=== PATIENT | female | born 1990 | race American Indian/Alaskan Native ===

== ENCOUNTER 2021-08-16 12:11 | Outpatient (CLI) | payer MEDICAID ==
[2021-08-16 13:07] VITALS: BP 120/69
[2021-08-16] MEDS ORDERED: LACTATED RINGERS 500 ML IV ONE (13:10)
[2021-08-16 14:08] LABS: Bacteria,Urine 1+ /HPF (Negative); Bilirubin,Urine NEG (Negative); Blood,Urine NEG (Negative); Color,Urine Yellow (Yellow); Mucus,Urine 3+ /HPF; Urobilinogen,Urine < 2.0 mg/dL (<2.0)
== END 2021-08-16 14:55 | disposition home or self-care (01) ==
LOC: TRG 12:11 → APU 12:13 → TRG 14:55
PROVIDERS: ATTEND Student in an Organized Health Care Education/Training Program
DX: O60.03 Preterm labor without delivery, third trimester (principal); Z3A.28 28 weeks gestation of pregnancy
CPT/HCPCS: 36415; 59025; 81001; 84112; 87086

== ENCOUNTER 2021-10-12 20:36 | Inpatient (IN) | payer MEDICAID ==
[2021-10-12] MEDS ORDERED: LACTATED RINGERS 1,000 ML ONE (21:03)
[2021-10-12] MEDS ORDERED: ePHEDrine SULFATE 50 MG/1 ML INJ IV PRN (22:28)
[2021-10-12] MEDS ORDERED: TERBUTALINE 1 MG/1 ML INJ SUB-Q PRN (22:28)
[2021-10-12] MEDS ORDERED: LIDOCAINE (2%) 20 MG/1 ML VIAL 20 ML MDV INFILTRATI ONE (22:28)
[2021-10-12] MEDS ORDERED: ONDANSETRON 4 MG/2 ML INJ IV PRN (22:28)
[2021-10-12] MEDS ORDERED: NalbUPHINE 10 MG/1 ML INJ IV PRN (22:28)
[2021-10-12] MEDS ORDERED: MINERAL OIL 30 ML ORAL LIQD PO PRN (22:28)
[2021-10-12] MEDS ORDERED: ACETAMINOPHEN 325 MG TAB PO PRN (22:28)
[2021-10-12] MEDS ORDERED: PROMETHAZINE 25 MG TAB PO PRN (22:28)
[2021-10-12] MEDS ORDERED: DINOPROSTONE 10 MG VAG SUPP VG ONE (22:28)
[2021-10-12] MEDS ORDERED: OXYTOCIN DRIP 30 UNITS/500 ML BAG IV SCH (23:00)
[2021-10-12 23:24] LABS: Hematocrit 30.6 % (30.3-42.9); Hemoglobin 9.7 gm/dl (10.1-14.3); Mean Corpuscular HGB Conc 32 % (30-34); Mean Corpuscular Volume 86 fl (79-97); Platelet Count 269 K/mm3 (140-440); Red Blood Count 3.57 M/mm3 (3.65-5.03)
--- NOTE | 2021-10-13 07:52 | History and Physical Report ---
History of Present Illness Date of examination: 10/13/21 Date of admission: 10/12/21 20:36 Chief complaint: I'm here to be induced because I was told my baby can . History of present illness: Pt is a @ 37 wks, who presented to labor and delivery for an IOL d/t IUGR and abnormal dopplers. She was being followed by [facility] d/t IUGR and hx of gastric sleeve procedure. EDC Confirmation: 11/03/2021 Gestational Age: 37 weeks Past History : 1 Term Births: 0 Premature Births: 0 Living Children: 0 Para: 0 Mult. Births: 0 Prev : 0 Prev. attempt? 0 Aborta: 0 Elect. Ab: 0 Spont. Ab: 0 Ectopics: 0 Past Medical History: Reviewed and updated today: Depression - takes Zoloft PCOS - diagnosed 2015 Past Surgical History: Reviewed and updated today: Gastric sleeve - 08/2017 Family History Summary: [facility] - Has Family History Breast Cancer - Entered On: 04/12/2021 Social History: Patient is single Smoking History: Patient has never smoked. Risk Factors: Smoked Tobacco Use: Never smoker Smokeless Tobacco Use: Never Counseled to Quit/Cut Down: yes Passive Smoke Exposure: no HIV High Risk Behavior: no Caffeine Use: <1 drinks per day Exercise: no Seatbelt Use: preg-disability counselor % No Dietary Counseling Reason: pn yes Alcohol Use: yes AUDIT-C How often do you have a drink containing alcohol? Monthly or less Total AUDIT-C Score: 1 Drug Use: no Past Medical History Surgery (Non-obstetrician and gynaecologist): Gastric sleeve - 08/2017 Abnormal PAP: negative JIGNA Exposure: negative Infertility: negative Uterine Anomaly: negative Uterine Surgery (not C/S): negative Other Gynecologic Problems: negative Social Hx: Patient is single Smoking History: Patient has never smoked. Infection History Hx of STD: chlamydia HIV Risk Eval: no Hepatitis B Risk Eval: low risk Personal hx. of genital herpes: no Rash, Viral, or Febrile illness since last LMP? no Varicella/Chicken Pox Status: Previous Disease TB Risk: no Genetic History Congenital Heart Defect: Mom: no Dad: no Jose Disease: Mom: no Dad: no Thalassemia Mom: no Dad: no Neural Tube Defect Mom: no Dad: no Down's Syndrome Mom: no Dad: no Francisco-Sachs Mom: no Dad: no Sickle Cell Disease/Trait Mom: no Dad: no Hemophilia Mom: no Dad: no Muscular Dystrophy Mom: no Dad: no Cystic Fibrosis Mom: no Dad: no Slade Chorea Mom: no Dad: no Mental Retardation Mom: no Dad: no Fragile X Mom: no Dad: no Other Genetic/Chromosomal Disorder Mom: no Dad: no Child w/other defect Mom: no Dad: no Enviromental Exposures Enviromental Exposures Reviewed Xray Exposure: no Medication, drug, or alcohol use since LMP: no Chemical/Other Exposure: no Exposure to Cat Liter: no Hx of Parvovirus (Fifth Disease): no Occupational Exposure to Children: none Comments: Works from home Current Allergies (reviewed today): No known allergies Past History Past Medical History: other (Depression) Past Surgical History: other (Gastric sleeve) 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) Family/Genetic History: cancer Social history: no significant social history - Obstetrical History Expected Date of Delivery: 11/03/21 Actual Gestation: 37 Week(s) 0 Day(s) : 1 Para: 0 Hx # Term Pregnancies: 0 Number of Pregnancies: 0 Spontaneous Abortions: 0 Induced : 0 Number of Living Children: 0 Medications and Allergies Allergies Allergy/AdvReac Type Severity Reaction Status Date / Time No Known Allergies Allergy Unverified 08/16/21 13:15 Active Meds: Active Medications Acetaminophen (Acetaminophen 325 Mg Tab) 650 mg PO Q4H PRN PRN Reason: Pain, Mild (1-3) Ephedrine Sulfate (Ephedrine Sulfate 50 Mg/1 Ml Inj) 10 mg IV Q2M PRN PRN Reason: Hypotension Lactated Ringer's (Lactated Ringers) 1,000 mls @ 125 mls/hr IV DIRECT MICHAELLE Oxytocin/Sodium Chloride (Pitocin/Ns 30 Unit/500ml) 30 units in 500 mls @ 40 mls/hr IV TITR MICHAELLE; Protocol Mineral Oil (Mineral Oil 30 Ml Oral Liqd) 30 ml PO QHS PRN PRN Reason: Constipation Nalbuphine HCl (Nalbuphine 10 Mg/1 Ml Inj) 10 mg IV Q2H PRN PRN Reason: Pain, Moderate (4-6) Ondansetron HCl (Ondansetron 4 Mg/2 Ml Inj) 4 mg IV Q8H PRN PRN Reason: Nausea And Vomiting Promethazine HCl (Promethazine 25 Mg Tab) 25 mg PO Q6H PRN PRN Reason: Nausea And Vomiting Terbutaline Sulfate (Terbutaline 1 Mg/1 Ml Inj) 0.25 mg SUB-Q ONCE PRN PRN Reason: Hyperstimulation/Hypertonicity Review of Systems All systems: negative - Vital Signs Vital signs: Vital Signs Pulse Pulse Ox 100 H 100 10/12/21 21:48 10/12/21 21:48 Temp Pulse Resp BP Pulse Ox 98.7 F 82 15 121/76 98 10/13/21 04:24 10/13/21 07:15 10/13/21 04:24 10/13/21 04:09 10/13/21 07:15 - Physical Exam Breasts: Positive: deferred Cardiovascular: Regular rate Lungs: Positive: Normal air movement Abdomen: Positive: normal appearance, soft Genitourinary (Female): Positive: normal external genitalia, normal perenium Vulva: both: normal Uterus: Positive: enlarged (Normal for @ 37 weeks gestation) Extremities: Positive: normal - Obstetrical FHR: category 1 Uterine Contraction Monitor Mode: Internal Cervical Dilatation: 0 (Per water and sewer systems superintendent RN) Cervical Effacement Percentage: 20 station: -4 Uterine Contraction Pattern: Irregular Uterine Tone Measurement Phase: Resting Uterine Contraction Intensity: Mild Results Result Diagrams: 10/12/21 Unknown Abnormal lab results 10/12/21 Range/Units Unknown RBC 3.57 L (3.65-5.03) M/mm3 Hgb 9.7 L (10.1-14.3) gm/dl MCH 27 L (28-32) pg All other labs normal. GBS NEGATIVE HBsAg Screen Negative Negative *1 RPR Non Reactive Non Reactive *2 Rubella Antibodies, IgG 4.06 index Immune >0.99 *3 Non-immune <0.90 Equivocal 0.90 - 0.99 Immune >0.99 ABO Grouping A *4 Rh Factor Positive *5 Please note: Prior records for this patient's ABO / Rh type are not available for additional verification. Antibody Screen Negative Negative *6 Tests: (2) HB Solu + Rflx [facility] ([id number]) Hemoglobin (Hgb) Solubility Negative Negative *31 Tests: (3) HIV Ag/Ab with Reflex ([id number]) HIV Screen 4th Generation wRfx Non Reactive Non Reactive *32 Tests: (4) HCV Antibody reflex to AMOL ([id number]) HCV Ab <0.1 s/co ratio 0.0-0.9 *33 Tests: (5) Interpretation: ([id number]) ! Interpretation: SPRCS *34 Negative Not infected with HCV, unless recent infection is suspected or other evidence exists to indicate HCV infection. Assessment and Plan A: 31 y.o. @ 37 wks, IOL d/t IUGR and abnormal Doppler studies at [facility] visit. - Patient Problems (1) IUGR (intrauterine growth restriction) affecting care of mother Current Visit: Yes Status: Acute Qualifiers: Trimester: third trimester Plan to address problem: Monitor status through EFM. Continuous EFM. (2) 37 or more weeks gestation of Current Visit: Yes Status: Acute Plan to address problem: Admit to labor and delivery for IOL. Initiate IV. Draw admission labs. IOL started with Cervidil. Due to be taken out at noon. Pain management: IV pain medication and epidural when need.
--- NOTE | 2021-10-13 12:18 | Event Note ---
Date: 10/13/21 (Cervidil removed. ) Cervical exam 0.5/50/-4. Cervidil removed. Will allow patient to eat lunch, then continue IOL with Pitocin. Per u/s: vertex presentation.
--- NOTE | 2021-10-13 12:25 | Ultrasound Report ---
ULTRASOUND OBSTETRIC LIMITED INDICATION / CLINICAL INFORMATION: presentation. TECHNIQUE: Transabdominal. COMPARISON: None available. FINDINGS: HEART RATE (beats per minute): 156 PRESENTATION: Cephalic. ADDITIONAL FINDINGS: None. IMPRESSION: 1. Cephalic presentation with heart rate of 156 bpm. Signer Name: Galo Simms MD Signed: 10/13/2021 12:20 PM Workstation Name: [id number]
[2021-10-13] MEDS ORDERED: OXYTOCIN DRIP 30 UNITS/500 ML BAG IV SCH (15:00)
[2021-10-13] MEDS: LACTATED RINGERS 1,000 ML IV SCH (19:50)
--- NOTE | 2021-10-13 20:34 | Event Note ---
Date: 10/13/21 Category 1 monitor tracing with irregular contractions at times. Will continue with IOL. Pitocin stopped for now. Will allow patient to eat dinner. Cervical exam 1.5//-3. Will insert Cervidil after patient eats dinner. Plan of care for the night discussed with patient. She verbalized understanding and agrees to plan.
[2021-10-13] MEDS ORDERED: BUTORPHANOL 2 MG/1 ML INJ IV PRN (20:37)
[2021-10-13] MEDS ORDERED: DINOPROSTONE 10 MG VAG SUPP VG ONE (21:32)
[2021-10-14] MEDS: LACTATED RINGERS 1,000 ML IV SCH ×4 (01:46→09:07)
[2021-10-14] MEDS: fentaNYL 100 MCG/2 ML INJ IV PRN ×2 (03:10→05:57)
--- NOTE | 2021-10-14 03:20 | Progress Note ---
Assessment and Plan A: 31 y.o. @ 37.1 wks, IOL d/t IUGR with abnormal Dopplers. - Patient Problems (1) IUGR (intrauterine growth restriction) affecting care of mother Current Visit: Yes Status: Acute Qualifiers: Trimester: third trimester Plan to address problem: Pt with too many contractions and c/o a lot of pain. Cervical exam /-2. Cervidil removed at this time. Will initiate Pitocin per protocol. (2) 37 or more weeks gestation of Current Visit: Yes Status: Acute Subjective - Subjective Date of service: 10/14/21 Principal diagnosis: IUP @ 37.1 wks, IOL d/t IUGR and abnormal dopplers Patient reports: movement normal, contractions Objective - Vital Signs Vital Signs: Vital Signs - 12hr 10/13/21 10/13/21 10/13/21 14:43 14:48 14:53 Temperature Pulse Rate 50 L 79 84 Respiratory Rate Blood Pressure O2 Sat by Pulse 85 99 99 Oximetry O2 Sat by Pulse Oximetry [ Bilateral Throughout] 10/13/21 10/13/21 10/13/21 14:58 15:03 15:08 Temperature Pulse Rate 78 83 80 Respiratory Rate Blood Pressure O2 Sat by Pulse 99 99 98 Oximetry O2 Sat by Pulse Oximetry [ Bilateral Throughout] 10/13/21 10/13/21 10/13/21 15:13 15:18 15:23 Temperature Pulse Rate 81 78 92 H Respiratory Rate Blood Pressure O2 Sat by Pulse 98 98 100 Oximetry O2 Sat by Pulse Oximetry [ Bilateral Throughout] 10/13/21 10/13/21 10/13/21 15:24 15:28 15:29 Temperature 98.4 F Pulse Rate 83 79 Respiratory Rate Blood Pressure 116/62 O2 Sat by Pulse 97 Oximetry O2 Sat by Pulse Oximetry [ Bilateral Throughout] 10/13/21 10/13/21 10/13/21 15:33 15:38 15:43 Temperature Pulse Rate 76 76 79 Respiratory Rate Blood Pressure O2 Sat by Pulse 98 99 98 Oximetry O2 Sat by Pulse Oximetry [ Bilateral Throughout] 10/13/21 10/13/21 10/13/21 15:48 15:53 15:58 Temperature Pulse Rate 91 H 74 76 Respiratory Rate Blood Pressure 119/70 O2 Sat by Pulse 100 98 98 Oximetry O2 Sat by Pulse Oximetry [ Bilateral Throughout] 03/07/2510/13/21 10/13/21 16:10 16:15 16:20 Temperature Pulse Rate 75 68 64 Respiratory Rate Blood Pressure O2 Sat by Pulse 94 100 99 Oximetry O2 Sat by Pulse Oximetry [ Bilateral Throughout] 10/13/21 10/13/21 10/13/21 16:25 16:30 16:35 Temperature Pulse Rate 63 76 64 Respiratory Rate Blood Pressure O2 Sat by Pulse 97 99 99 Oximetry O2 Sat by Pulse Oximetry [ Bilateral Throughout] 10/13/21 10/13/21 10/13/21 16:40 16:45 16:50 Temperature Pulse Rate 65 68 67 Respiratory Rate Blood Pressure O2 Sat by Pulse 100 100 100 Oximetry O2 Sat by Pulse Oximetry [ Bilateral Throughout] 10/13/21 10/13/21 10/13/21 16:55 17:00 17:07 Temperature Pulse Rate 67 74 91 H Respiratory Rate Blood Pressure O2 Sat by Pulse 100 99 99 Oximetry O2 Sat by Pulse Oximetry [ Bilateral Throughout] 10/13/21 10/13/21 10/13/21 17:12 17:17 17:22 Temperature Pulse Rate 84 84 71 Respiratory Rate Blood Pressure O2 Sat by Pulse 100 100 100 Oximetry O2 Sat by Pulse Oximetry [ Bilateral Throughout] 10/13/21 10/13/21 10/13/21 17:27 17:29 17:32 Temperature Pulse Rate 69 68 70 Respiratory Rate Blood Pressure O2 Sat by Pulse 100 90 100 Oximetry O2 Sat by Pulse Oximetry [ Bilateral Throughout] 10/13/21 10/13/21 10/13/21 17:37 17:42 17:47 Temperature Pulse Rate 66 78 80 Respiratory Rate Blood Pressure O2 Sat by Pulse 100 100 99 Oximetry O2 Sat by Pulse Oximetry [ Bilateral Throughout] 10/13/21 10/13/21 10/13/21 17:52 17:57 18:01 Temperature 99 F Pulse Rate 75 78 Respiratory Rate Blood Pressure O2 Sat by Pulse 99 100 Oximetry O2 Sat by Pulse Oximetry [ Bilateral Throughout] 10/13/21 10/13/21 10/13/21 18:02 18:07 18:12 Temperature Pulse Rate 76 75 70 Respiratory Rate Blood Pressure O2 Sat by Pulse 100 100 100 Oximetry O2 Sat by Pulse Oximetry [ Bilateral Throughout] 10/13/21 10/13/21 10/13/21 18:17 18:22 18:27 Temperature Pulse Rate 71 77 67 Respiratory Rate Blood Pressure O2 Sat by Pulse 99 100 100 Oximetry O2 Sat by Pulse Oximetry [ Bilateral Throughout] 10/13/21 10/13/21 10/13/21 18:32 18:37 18:42 Temperature Pulse Rate 72 68 69 Respiratory Rate Blood Pressure O2 Sat by Pulse 100 100 100 Oximetry O2 Sat by Pulse Oximetry [ Bilateral Throughout] 10/13/21 10/13/21 10/13/21 18:47 18:52 18:57 Temperature Pulse Rate 74 70 55 L Respiratory Rate Blood Pressure O2 Sat by Pulse 99 100 85 Oximetry O2 Sat by Pulse Oximetry [ Bilateral Throughout] 10/13/21 10/13/21 10/13/21 19:00 19:05 19:10 Temperature Pulse Rate 85 76 84 Respiratory Rate Blood Pressure O2 Sat by Pulse 98 100 100 Oximetry O2 Sat by Pulse Oximetry [ Bilateral Throughout] 10/13/21 10/13/21 10/13/21 19:15 19:20 19:25 Temperature Pulse Rate 75 79 75 Respiratory Rate Blood Pressure O2 Sat by Pulse 100 100 100 Oximetry O2 Sat by Pulse Oximetry [ Bilateral Throughout] 10/13/21 10/13/21 10/13/21 19:30 19:35 19:38 Temperature Pulse Rate 71 73 72 Respiratory Rate Blood Pressure 121/68 O2 Sat by Pulse 99 100 Oximetry O2 Sat by Pulse Oximetry [ Bilateral Throughout] 10/13/21 10/13/21 10/13/21 19:40 19:45 19:46 Temperature 99.0 F Pulse Rate 72 72 Respiratory Rate Blood Pressure O2 Sat by Pulse 100 100 Oximetry O2 Sat by Pulse Oximetry [ Bilateral Throughout] 10/13/21 10/13/21 10/13/21 19:47 19:50 19:55 Temperature Pulse Rate 84 83 Respiratory Rate Blood Pressure O2 Sat by Pulse 100 100 Oximetry O2 Sat by Pulse 100 Oximetry [ Bilateral Throughout] 10/13/21 10/13/21 10/13/21 20:02 20:07 20:12 Temperature Pulse Rate 80 91 H 86 Respiratory Rate Blood Pressure O2 Sat by Pulse 96 100 100 Oximetry O2 Sat by Pulse Oximetry [ Bilateral Throughout] 10/13/21 10/13/21 10/13/21 20:17 20:22 20:27 Temperature Pulse Rate 77 76 83 Respiratory Rate Blood Pressure O2 Sat by Pulse 100 100 99 Oximetry O2 Sat by Pulse Oximetry [ Bilateral Throughout] 10/13/21 10/13/21 10/13/21 20:32 20:49 20:52 Temperature Pulse Rate 78 Respiratory 18 Rate Blood Pressure O2 Sat by Pulse 100 83 L Oximetry O2 Sat by Pulse Oximetry [ Bilateral Throughout] 10/13/21 10/13/21 10/13/21 20:53 21:06 21:27 Temperature Pulse Rate 80 76 82 Respiratory Rate Blood Pressure 127/80 O2 Sat by Pulse 100 98 Oximetry O2 Sat by Pulse Oximetry [ Bilateral Throughout] 10/13/21 10/13/21 10/13/21 21:36 21:41 21:46 Temperature Pulse Rate 95 H 82 108 H Respiratory Rate Blood Pressure O2 Sat by Pulse 99 98 99 Oximetry O2 Sat by Pulse Oximetry [ Bilateral Throughout] 10/13/21 10/13/21 10/13/21 21:49 21:51 21:52 Temperature Pulse Rate 95 H 78 Respiratory 18 Rate Blood Pressure 133/78 O2 Sat by Pulse 99 Oximetry O2 Sat by Pulse Oximetry [ Bilateral Throughout] 10/13/21 10/13/21 10/13/21 21:56 22:01 22:06 Temperature Pulse Rate 93 H 85 74 Respiratory Rate Blood Pressure O2 Sat by Pulse 99 98 99 Oximetry O2 Sat by Pulse Oximetry [ Bilateral Throughout] 10/13/21 10/13/21 10/13/21 22:11 22:16 22:21 Temperature Pulse Rate 76 75 68 Respiratory Rate Blood Pressure O2 Sat by Pulse 98 99 99 Oximetry O2 Sat by Pulse Oximetry [ Bilateral Throughout] 10/13/21 10/13/21 10/13/21 22:26 22:31 22:36 Temperature Pulse Rate 71 67 63 Respiratory Rate Blood Pressure O2 Sat by Pulse 99 99 100 Oximetry O2 Sat by Pulse Oximetry [ Bilateral Throughout] 10/13/21 10/14/21 10/14/21 23:51 00:51 00:55 Temperature Pulse Rate 74 79 75 Respiratory Rate Blood Pressure 137/81 161/92 132/81 O2 Sat by Pulse Oximetry O2 Sat by Pulse Oximetry [ Bilateral Throughout] 10/14/21 10/14/21 10/14/21 01:48 01:51 01:53 Temperature 98.4 F Pulse Rate 82 94 H Respiratory Rate Blood Pressure O2 Sat by Pulse 100 100 Oximetry O2 Sat by Pulse Oximetry [ Bilateral Throughout] 10/14/21 10/14/21 10/14/21 01:58 03:03 03:08 Temperature Pulse Rate 78 88 72 Respiratory Rate Blood Pressure O2 Sat by Pulse 100 100 100 Oximetry O2 Sat by Pulse Oximetry [ Bilateral Throughout] 10/14/21 10/14/21 10/14/21 03:10 03:13 03:18 Temperature Pulse Rate 77 82 Respiratory 20 Rate Blood Pressure O2 Sat by Pulse 98 97 Oximetry O2 Sat by Pulse Oximetry [ Bilateral Throughout] - Exam Cardiovascular: Regular rate Lungs: Normal air movement Vulva: both: normal FHR: category 1 Uterine Contraction Monitor Mode: External Cervical Dilatation: 2 Cervical Effacement Percentage: 50 station: -2 Uterine Contraction Pattern: Irregular Uterine Tone Measurement Phase: Resting Uterine Contraction Intensity: Moderate Extremities: normal - Labs Labs: Abnormal Labs 10/12/21 Unknown RBC 3.57 L Hgb 9.7 L MCH 27 L Laboratory Results - last 24 hr 10/13/21 09:45 SARS-CoV-2 (PCR) Negative
--- NOTE | 2021-10-14 04:48 | Event Note ---
Date: 10/14/21 Received a call from RN to let me know that the patient had just SROM for mec stained fluid. Upon assessment, a large amount of meconium stained fluid noted on bed. Cervical exam . Will start Pitocin per protocol. Category 1 monitor tracing noted.
[2021-10-14] MEDS ORDERED: NALOXONE 2 MG/2 ML INJ IV PRN (07:22)
[2021-10-14] MEDS ORDERED: ePHEDrine SULFATE 50 MG/1 ML INJ IV PRN (07:22)
--- NOTE | 2021-10-14 07:22 | Anesthesia Consultation ---
Anesthesia Consult and Med Hx Date of service: 10/14/21 - Airway Anesthetic Teeth Evaluation: Good ROM Head & Neck: Adequate Mental/Hyoid Distance: Adequate Mallampati Class: Class II Intubation Access Assessment: Probably Good - Pulmonary Exam CTA: Yes - Cardiac Exam Cardiac Exam: RRR - Pre-Operative Health Status ASA Pre-Surgery Classification: ASA2 Proposed Anesthetic Plan: Epidural - Pulmonary Hx Asthma: No COPD: No Hx Pneumonia: No - Cardiovascular System Hx Hypertension: No - Central Nervous System Hx Seizures: No Hx Psychiatric Problems: Yes - Endocrine Hx Renal Disease: No Hx End Stage Renal Disease: No Hx Hypothyroidism: No Hx Hyperthyroidism: No - Hematic Hx Anemia: No Hx Sickle Cell Disease: No - Other Systems Hx Alcohol Use: No
--- NOTE | 2021-10-14 07:48 | Progress Note ---
Labor Epidural - Labor Epidural Start Time: 07:32 Stop Time: 07:48 Performed by:: MARIA ALEJANDRA IBARRA Procedure: Patient is requesting epidural for labor pain. H&P, and labs reviewed. Procedure explained, questions answered, consent obtained. Patient in sitting position with blood pressure cuff and pulse ox on and working. Timeout performed immediately before start of procedure. Sterile Chloraprep prep/drape. 3 mL 1% lidocaine skin wheal at L[3]-L[4]. 17-gauge tuohy epidural needle advanced to [id number] with saline at 9 cm. 25-gauge spinal needle advanced until clear, free-flowing CSF. Epidural catheter advanced to 15 cm, negative aspiration for blood and csf, negative test dose 3 ml 1.5% lidocaine with epinephrine. Dexmedetomidine 30 mcg administered. Sterile sponge and tegaderm applied, followed by tape reinforcement. Patient tolerated procedure well. Jacquelin SRNA
[2021-10-14] MEDS ORDERED: fentaNYL-BUPIV 2 MCG/ML-0.125% 200 MCG/100 ML BAG EPIDURAL SCH (08:00)
--- NOTE | 2021-10-14 09:21 | Progress Note ---
Assessment and Plan A: 31 y.o. IOL d/t IUGR and abnormal Dopplers. - Patient Problems (1) IUGR (intrauterine growth restriction) affecting care of mother Current Visit: Yes Status: Acute Qualifiers: Trimester: third trimester Plan to address problem: Continue with IOL. Continue with Pitocin per protocol. Continue to monitor status through EFM. Anticipate . (2) 37 or more weeks gestation of Current Visit: Yes Status: Acute Subjective - Subjective Date of service: 10/14/21 Principal diagnosis: IUP @ 37.1 wks, IOL d/t IUGR and abnormal dopplers Interval history: Pt had epidural placed. Anesthesia called to come and reassess d/t patient feeling pain. Also some low blood pressures that were corrected after administration of ephedrine. Patient reports: movement normal, contractions Objective - Vital Signs Vital Signs: Vital Signs - 12hr 10/13/21 10/13/21 10/13/21 20:22 20:27 20:32 Temperature Pulse Rate 76 83 78 Respiratory Rate Blood Pressure O2 Sat by Pulse 100 99 100 Oximetry O2 Sat by Pulse Oximetry [ Bilateral Throughout] 10/13/21 10/13/21 10/13/21 20:49 20:52 20:53 Temperature Pulse Rate 80 Respiratory 18 Rate Blood Pressure 127/80 O2 Sat by Pulse 83 L Oximetry O2 Sat by Pulse Oximetry [ Bilateral Throughout] 10/13/21 10/13/21 10/13/21 21:06 21:27 21:36 Temperature Pulse Rate 76 82 95 H Respiratory Rate Blood Pressure O2 Sat by Pulse 100 98 99 Oximetry O2 Sat by Pulse Oximetry [ Bilateral Throughout] 10/13/21 10/13/21 10/13/21 21:41 21:46 21:49 Temperature Pulse Rate 82 108 H Respiratory 18 Rate Blood Pressure O2 Sat by Pulse 98 99 Oximetry O2 Sat by Pulse Oximetry [ Bilateral Throughout] 10/13/21 10/13/21 10/13/21 21:51 21:52 21:56 Temperature Pulse Rate 95 H 78 93 H Respiratory Rate Blood Pressure 133/78 O2 Sat by Pulse 99 99 Oximetry O2 Sat by Pulse Oximetry [ Bilateral Throughout] 10/13/21 10/13/21 10/13/21 22:01 22:06 22:11 Temperature Pulse Rate 85 74 76 Respiratory Rate Blood Pressure O2 Sat by Pulse 98 99 98 Oximetry O2 Sat by Pulse Oximetry [ Bilateral Throughout] 10/13/21 10/13/21 10/13/21 22:16 22:21 22:26 Temperature Pulse Rate 75 68 71 Respiratory Rate Blood Pressure O2 Sat by Pulse 99 99 99 Oximetry O2 Sat by Pulse Oximetry [ Bilateral Throughout] 10/13/21 10/13/21 10/13/21 22:31 22:36 23:51 Temperature Pulse Rate 67 63 74 Respiratory Rate Blood Pressure 137/81 O2 Sat by Pulse 99 100 Oximetry O2 Sat by Pulse Oximetry [ Bilateral Throughout] 10/14/21 10/14/21 10/14/21 00:51 00:55 01:48 Temperature Pulse Rate 79 75 82 Respiratory Rate Blood Pressure 161/92 132/81 O2 Sat by Pulse 100 Oximetry O2 Sat by Pulse Oximetry [ Bilateral Throughout] 10/14/21 10/14/21 10/14/21 01:51 01:53 01:58 Temperature 98.4 F Pulse Rate 94 H 78 Respiratory Rate Blood Pressure O2 Sat by Pulse 100 100 Oximetry O2 Sat by Pulse Oximetry [ Bilateral Throughout] 10/14/21 10/14/21 10/14/21 03:03 03:08 03:10 Temperature Pulse Rate 88 72 Respiratory 20 Rate Blood Pressure O2 Sat by Pulse 100 100 Oximetry O2 Sat by Pulse Oximetry [ Bilateral Throughout] 10/14/21 10/14/21 10/14/21 03:13 03:18 03:23 Temperature Pulse Rate 77 82 76 Respiratory Rate Blood Pressure O2 Sat by Pulse 98 97 99 Oximetry O2 Sat by Pulse Oximetry [ Bilateral Throughout] 10/14/21 10/14/21 10/14/21 03:28 03:33 03:38 Temperature Pulse Rate 75 77 79 Respiratory Rate Blood Pressure O2 Sat by Pulse 99 99 100 Oximetry O2 Sat by Pulse Oximetry [ Bilateral Throughout] 10/14/21 10/14/21 10/14/21 03:43 03:48 03:53 Temperature Pulse Rate 79 89 88 Respiratory Rate Blood Pressure O2 Sat by Pulse 100 100 100 Oximetry O2 Sat by Pulse Oximetry [ Bilateral Throughout] 10/14/21 10/14/21 10/14/21 03:58 04:03 04:08 Temperature Pulse Rate 82 83 76 Respiratory Rate Blood Pressure O2 Sat by Pulse 100 100 100 Oximetry O2 Sat by Pulse Oximetry [ Bilateral Throughout] 10/14/21 10/14/21 10/14/21 04:10 04:13 04:18 Temperature Pulse Rate 76 76 Respiratory 18 Rate Blood Pressure O2 Sat by Pulse 99 100 Oximetry O2 Sat by Pulse Oximetry [ Bilateral Throughout] 10/14/21 10/14/21 10/14/21 04:23 04:28 04:33 Temperature Pulse Rate 73 68 78 Respiratory Rate Blood Pressure O2 Sat by Pulse 100 100 100 Oximetry O2 Sat by Pulse Oximetry [ Bilateral Throughout] 10/14/21 10/14/21 10/14/21 04:38 04:52 04:53 Temperature Pulse Rate 94 H 82 86 Respiratory Rate Blood Pressure 121/69 O2 Sat by Pulse 100 100 Oximetry O2 Sat by Pulse Oximetry [ Bilateral Throughout] 10/14/21 10/14/21 10/14/21 04:55 04:57 05:02 Temperature 98.8 F Pulse Rate 73 94 H Respiratory Rate Blood Pressure O2 Sat by Pulse 100 100 Oximetry O2 Sat by Pulse Oximetry [ Bilateral Throughout] 10/14/21 10/14/21 10/14/21 05:07 05:12 05:17 Temperature Pulse Rate 71 72 78 Respiratory Rate Blood Pressure O2 Sat by Pulse 100 99 100 Oximetry O2 Sat by Pulse Oximetry [ Bilateral Throughout] 10/14/21 10/14/21 10/14/21 05:22 05:27 05:32 Temperature Pulse Rate 85 70 74 Respiratory Rate Blood Pressure O2 Sat by Pulse 100 100 99 Oximetry O2 Sat by Pulse Oximetry [ Bilateral Throughout] 10/14/21 10/14/21 10/14/21 05:37 05:42 05:47 Temperature Pulse Rate 82 69 76 Respiratory Rate Blood Pressure O2 Sat by Pulse 99 100 100 Oximetry O2 Sat by Pulse Oximetry [ Bilateral Throughout] 10/14/21 10/14/21 10/14/21 05:52 05:57 06:02 Temperature Pulse Rate 91 H 72 78 Respiratory 18 Rate Blood Pressure O2 Sat by Pulse 100 100 100 Oximetry O2 Sat by Pulse Oximetry [ Bilateral Throughout] 10/14/21 10/14/21 10/14/21 06:07 06:12 06:17 Temperature Pulse Rate 96 H 70 74 Respiratory Rate Blood Pressure O2 Sat by Pulse 100 100 96 Oximetry O2 Sat by Pulse Oximetry [ Bilateral Throughout] 10/14/21 10/14/21 10/14/21 06:22 06:24 06:27 Temperature Pulse Rate 82 69 67 Respiratory Rate Blood Pressure O2 Sat by Pulse 100 92 90 Oximetry O2 Sat by Pulse Oximetry [ Bilateral Throughout] 10/14/21 10/14/21 10/14/21 06:31 06:32 06:37 Temperature Pulse Rate 69 86 64 Respiratory Rate Blood Pressure O2 Sat by Pulse 91 100 98 Oximetry O2 Sat by Pulse Oximetry [ Bilateral Throughout] 10/14/21 10/14/21 10/14/21 06:38 06:42 06:45 Temperature Pulse Rate 65 84 73 Respiratory Rate Blood Pressure O2 Sat by Pulse 88 97 93 Oximetry O2 Sat by Pulse Oximetry [ Bilateral Throughout] 10/14/21 10/14/21 10/14/21 06:47 06:52 07:07 Temperature Pulse Rate 74 77 74 Respiratory Rate Blood Pressure 122/61 O2 Sat by Pulse 99 99 Oximetry O2 Sat by Pulse Oximetry [ Bilateral Throughout] 10/14/21 10/14/21 10/14/21 07:10 07:15 07:20 Temperature Pulse Rate 85 92 H 90 Respiratory Rate Blood Pressure O2 Sat by Pulse 100 98 100 Oximetry O2 Sat by Pulse Oximetry [ Bilateral Throughout] 10/14/21 10/14/21 10/14/21 07:25 07:30 07:35 Temperature 98.5 F Pulse Rate 102 H 101 H 81 Respiratory 20 Rate Blood Pressure O2 Sat by Pulse 100 100 99 Oximetry O2 Sat by Pulse 100 Oximetry [ Bilateral Throughout] 10/14/21 10/14/21 10/14/21 07:39 07:40 07:45 Temperature Pulse Rate 72 71 80 Respiratory Rate Blood Pressure 132/73 O2 Sat by Pulse 100 100 Oximetry O2 Sat by Pulse Oximetry [ Bilateral Throughout] 10/14/21 10/14/21 10/14/21 07:47 07:49 07:50 Temperature Pulse Rate 85 96 H 88 Respiratory Rate Blood Pressure 136/84 112/86 O2 Sat by Pulse 100 Oximetry O2 Sat by Pulse Oximetry [ Bilateral Throughout] 10/14/21 10/14/21 10/14/21 07:51 07:53 07:55 Temperature Pulse Rate 80 88 69 Respiratory Rate Blood Pressure 123/78 141/73 130/67 O2 Sat by Pulse 100 Oximetry O2 Sat by Pulse Oximetry [ Bilateral Throughout] 10/14/21 10/14/21 10/14/21 07:57 07:59 08:00 Temperature Pulse Rate 93 H 74 81 Respiratory Rate Blood Pressure 127/65 118/60 O2 Sat by Pulse 100 Oximetry O2 Sat by Pulse Oximetry [ Bilateral Throughout] 10/14/21 10/14/21 10/14/21 08:01 08:03 08:05 Temperature Pulse Rate 75 74 82 Respiratory Rate Blood Pressure 123/68 131/75 124/70 O2 Sat by Pulse 100 Oximetry O2 Sat by Pulse Oximetry [ Bilateral Throughout] 10/14/21 10/14/21 10/14/21 08:07 08:09 08:10 Temperature Pulse Rate 85 71 83 Respiratory Rate Blood Pressure 137/88 129/74 O2 Sat by Pulse 100 Oximetry O2 Sat by Pulse Oximetry [ Bilateral Throughout] 10/14/21 10/14/21 10/14/21 08:14 08:15 08:20 Temperature Pulse Rate 83 91 H 91 H Respiratory Rate Blood Pressure 133/81 O2 Sat by Pulse 100 100 Oximetry O2 Sat by Pulse Oximetry [ Bilateral Throughout] 10/14/21 10/14/21 10/14/21 08:21 08:25 08:30 Temperature Pulse Rate 88 66 67 Respiratory Rate Blood Pressure 139/70 O2 Sat by Pulse 100 99 Oximetry O2 Sat by Pulse Oximetry [ Bilateral Throughout] 10/14/21 10/14/21 10/14/21 08:35 08:40 08:45 Temperature Pulse Rate 70 62 62 Respiratory Rate Blood Pressure 119/72 O2 Sat by Pulse 100 100 100 Oximetry O2 Sat by Pulse Oximetry [ Bilateral Throughout] 10/14/21 10/14/21 10/14/21 08:48 08:50 08:52 Temperature Pulse Rate 62 65 62 Respiratory Rate Blood Pressure 91/52 89/50 O2 Sat by Pulse 99 Oximetry O2 Sat by Pulse Oximetry [ Bilateral Throughout] 10/14/21 10/14/21 10/14/21 08:55 08:56 08:57 Temperature Pulse Rate 66 75 64 Respiratory Rate Blood Pressure 83/48 O2 Sat by Pulse 88 93 Oximetry O2 Sat by Pulse Oximetry [ Bilateral Throughout] 10/14/21 10/14/21 10/14/21 09:00 09:04 09:05 Temperature Pulse Rate 73 74 64 Respiratory Rate Blood Pressure 91/51 87/47 O2 Sat by Pulse 99 100 Oximetry O2 Sat by Pulse Oximetry [ Bilateral Throughout] 10/14/21 10/14/21 10/14/21 09:09 09:10 09:15 Temperature Pulse Rate 68 72 75 Respiratory Rate Blood Pressure 92/51 91/50 O2 Sat by Pulse 100 100 Oximetry O2 Sat by Pulse Oximetry [ Bilateral Throughout] - Exam Breasts: deferred Cardiovascular: Regular rate Lungs: Normal air movement Abdomen: Present: normal appearance, soft Vulva: both: normal FHR: category 2 (Periods of category 2 with return to category 1 after blood pressure corrected. ) Uterine Contraction Monitor Mode: External Cervical Dilatation: 5 Cervical Effacement Percentage: 60 station: -2 Uterine Contraction Pattern: Regular Uterine Tone Measurement Phase: Resting Uterine Contraction Intensity: Moderate - Labs Labs: Abnormal Labs 10/12/21 Unknown RBC 3.57 L Hgb 9.7 L MCH 27 L Laboratory Results - last 24 hr 10/13/21 09:45 SARS-CoV-2 (PCR) Negative
--- NOTE | 2021-10-14 11:43 | Procedure Note ---
OB Delivery Note - Delivery Date of Delivery: 10/14/21 Job Captain: ROSAURA FLOWERS Estimated blood loss: 100cc - Vaginal Delivery presentation: vertex Delivery position: OA Intrapartum events: mult.variable deceleratio, other(please specify) (IUGR) Delivery induction: cervidil Delivery augmentation: rupture of membranes, pitocin Delivery monitor: external FHT, external uterine Delivery placenta: spontaneous Delivery cord: 3 umbilical vessels Episiotomy: none Delivery laceration: other (Perineal abrasions noted.) Anesthesia: epidural Delivery comments: of viable female infant. Infant to mothers abdomen for skin to skin. Cord cut and clamped and handed to NICU team for evaluation. Spontaneous delivery of placenta, intact, complete, 3 vessels noted. Placenta sent to pathology. Perineum and vagina inspected, some abrasions noted, no need to repair. Fundus firm, minimal bleeding noted. weight 5-2. Apgars 8,9. EBL 100ml. Sponges and instruments counted with RN X 2 and correct X2. Infant and mother left in stable condition in care of RN. - Infant A at 1 minute: 8 at 5 minutes: 9 Gender: Female ("Senobia", 5-2)
[2021-10-14] MEDS ORDERED: ACETAMINOPHEN 325 MG TAB PO PRN (14:24)
[2021-10-14] MEDS ORDERED: diphenhydrAMINE 25 MG CAP PO PRN (14:24)
[2021-10-14] MEDS ORDERED: CARBOPROST TROMETHAMINE 250 MCG/1 ML INJ IM PRN (14:24)
[2021-10-14] MEDS ORDERED: ONDANSETRON 4 MG/2 ML INJ IV PRN (14:24)
[2021-10-14] MEDS ORDERED: BENZOCAINE/MENTHOL 20/0.5% TOP SPRAY 56 GM TP PRN (14:24)
[2021-10-14] MEDS ORDERED: LANOLIN/ZINC/DIMETHICONE (LANSINOH) 7 GM TP PRN ×2 (14:24)
[2021-10-14] MEDS ORDERED: WITCH HAZEL/ GLYCERIN PAD TP PRN (14:24)
[2021-10-14] MEDS ORDERED: PROMETHAZINE 25 MG RECT SUPP PR PRN (14:24)
[2021-10-14] MEDS ORDERED: METHYLERGONOVINE MALEATE 0.2 MG/ML VIAL IM PRN (14:24)
[2021-10-14] MEDS ORDERED: oxyCODONE /ACETAMINOPHEN 5-325MG TAB PO PRN (14:24)
[2021-10-14] MEDS ORDERED: miSOPROStol 100 MCG TAB PR PRN (14:24)
[2021-10-14] MEDS ORDERED: PROMETHAZINE 25 MG TAB PO PRN (14:24)
[2021-10-14] MEDS ORDERED: MAGNESIUM HYDROXIDE (MOM) ORAL LIQD UDC PO PRN (14:24)
[2021-10-14] MEDS ORDERED: LOPERAMIDE 2 MG CAP PO PRN (14:24)
[2021-10-14] MEDS ORDERED: OXYTOCIN DRIP 30 UNITS/500 ML BAG IV SCH (14:24)
[2021-10-14] MEDS: IBUPROFEN 800 MG TAB PO SCH ×2 (15:15→23:17)
[2021-10-14] MEDS: DOCUSATE SODIUM 100 MG CAP PO SCH (23:17)
[2021-10-14 23:43] LABS: Hematocrit 29.6 % (30.3-42.9); Hemoglobin 10.1 gm/dl (10.1-14.3)
[2021-10-15] MEDS: IBUPROFEN 800 MG TAB PO SCH ×2 (06:19→18:10)
--- NOTE | 2021-10-15 08:57 | Discharge Summary ---
Providers - Providers Date of Admission: 10/12/21 20:36 t Date of discharge: 10/15/21 Attending physician: CELSO REYNOLDS Primary care physician: CELSO REYNOLDS Hospitalization Reason for admission: Induction Condition: Good Pertinent studies: Post deliver H/H 10.1/29.6 Procedures: Hospital course: Uncomplicated and course. Disposition: 01 HOME / SELF CARE / HOMELESS Final Discharge Diagnosis (Prints w/discharge instructions): Time spent for discharge: 20 - Discharge Diagnoses (1) (normal spontaneous vaginal delivery) Status: Acute Core Measure Documentation - Palliative Care Palliative Care/ Comfort Measures: Not Applicable - Core Measures Any of the following diagnoses?: none Exam - Constitutional Vitals: Temp Pulse Resp BP Pulse Ox 98.7 F 85 20 143/94 100 10/15/21 04:00 10/15/21 07:34 10/15/21 07:34 10/15/21 07:34 10/15/21 07:34 General appearance: Present: no acute distress - EENT Eyes: Present: PERRL ENT: hearing intact, clear oral mucosa - Neck Neck: Present: supple, normal ROM - Respiratory Respiratory effort: normal Respiratory: bilateral: CTA - Extremities Extremities: No edema Peripheral Pulses: within normal limits - Abdominal General gastrointestinal: Present: soft, non-tender, non-distended, normal bowel sounds Female genitourinary: Present: normal - Integumentary Integumentary: Present: clear, warm, dry - Musculoskeletal Musculoskeletal: gait normal, strength equal bilaterally - Psychiatric Psychiatric: appropriate mood/affect, intact judgment & insight - Neurologic Neurologic: moves all extremities Plan Activity: no restrictions Diet: regular Care Plan Goals: [] Smoking cessation referral if applicable(refer to patient education folder for contact #) [] Refer to [facility] Booklet Call your doctor immediately for: * Fever > 100.5 * Heavy vaginal bleeding ( >1 pad per hour) * Severe persistent headache * Shortness of breath * Reddened, hot, painful area to leg or breast * Drainage or odor from incision. * Keep incision clean and dry at all times and follow doctor's instructions regarding bathing/showering Follow up with: CELSO REYNOLDS MD [Primary Care Provider] - 6 Weeks (Congratulations! Please call [phone] to schedule visit in 6 weeks. Call for any questions or concerns.) Forms: [facility] Discharge Summary
[2021-10-15] MEDS: DOCUSATE SODIUM 100 MG CAP PO SCH ×2 (10:16→21:58)
[2021-10-15] MEDS: PRENATAL VIT27-FE FUMARATE-FOLIC ACID VIT TAB PO SCH (10:16)
--- NOTE | 2021-10-15 10:32 | Post Anesthesia Evaluation ---
- Post Anesthesia Evaluation Patient Participated: Yes Airway Patent: Yes Stable Respiratory Function: Yes Nausea/Vomiting: No Temp > 96.8F: Yes Pain Manageable: Yes Adequeate Hydration: Yes Anesthesia Complications: No Block Receding Appropriately: Yes Patient on Ventilator: No
[2021-10-15] MEDS ORDERED: TETANUS,DIPH,PERTUSS(ACELL) VACCINE 0.5 ML SYRINGE IM ONE (11:52)
[2021-10-16] MEDS: IBUPROFEN 800 MG TAB PO SCH ×3 (01:49→08:16)
[2021-10-16] MEDS: PRENATAL VIT27-FE FUMARATE-FOLIC ACID VIT TAB PO SCH (10:15)
[2021-10-16] MEDS: DOCUSATE SODIUM 100 MG CAP PO SCH (10:15)
[2021-10-16 13:21] VITALS: BP 132/85
== END 2021-10-16 12:37 | disposition home or self-care (01) | DRG 775 ==
LOC: LD 20:36 → OB 10-14 13:59
PROVIDERS: ADMIT Obstetrics & Gynecology; ATTEND Obstetrics & Gynecology
PROC: 10E0XZZ Delivery of Products of Conception, External Approach (ICD-10-PCS; principal; 2021-10-14)
PROC: 3E0R3BZ Introduction of Anesthetic Agent into Spinal Canal, Percutaneous Approach (ICD-10-PCS; 2021-10-14)
PROC: 00HU33Z Insertion of Infusion Device into Spinal Canal, Percutaneous Approach (ICD-10-PCS; 2021-10-14)
PROC: 3E0P7VZ Introduction of Hormone into Female Reproductive, Via Natural or Artificial Opening (ICD-10-PCS; 2021-10-15)
DX: O76 Abnormality in fetal heart rate and rhythm complicating labor and delivery (principal); O36.5930 Maternal care for other known or suspected poor fetal growth, third trimester, not applicable or unspecified; Z3A.37 37 weeks gestation of pregnancy; Z37.0 Single live birth; O99.344 Other mental disorders complicating childbirth; F32.9 Major depressive disorder, single episode, unspecified; O77.0 Labor and delivery complicated by meconium in amniotic fluid; O71.82 Other specified trauma to perineum and vulva
CPT/HCPCS: 36415; 59200; 76815; 85014; 85018; 85027; 86850; 86900; 86901; 88307; 99211; G0378; J3490; G0463; J0595; J2590; J3010; J7120; U0003